=== PATIENT | male | born 1995 | race Caucasian/White ===

== ENCOUNTER 2017-11-01 17:36 | Emergency (ER) | payer BC ==
[2017-11-01] MEDS ORDERED: KETOROLAC 30 MG/ML VIAL IM ONE (17:48)
--- NOTE | 2017-11-01 17:53 | Emergency Department Record ---
History of Present Illness - General Chief Complaint: Back Pain/Injury Stated Complaint: BACK INJURY Time Seen by Provider: 11/01/17 17:44 Source: Patient Mode of Arrival: Ambulatory Limitations: No limitations - History of Present Illness Initial Comments: The patient is here due to upper back pain which occurred at work about 2 hours ago. 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 The pain is much worse with any movement and twisting. He denies any fall, direct trauma, arm or leg numbness, tingling or weakness. The patient states he has no hx of similar issues or problems. The patient walked in from the ambulance with no difficulty. MD Complaint: Back pain Onset/Timin -: Hour(s) Similar Symptoms Previously: No Place: Work Severity scale (1-10): 7 Quality: Burning, Other Consistency: Constant Improves With: None Worsens With: Movement, Sitting upright, Walking Context: Other Associated Symptoms: Denies other symptoms - Related Data Previous Rx's Medication Instructions Recorded Ibuprofen [Motrin] 800 mg PO TID PRN #20 tab 11/01/17 Allergies Allergy/AdvReac Type Severity Reaction Status Date / Time No Known Drug Allergies Allergy Verified 11/01/17 17:45 Travel Screening - Travel/Exposure Within Last 30 Days Have you traveled within the last 30 days?: No - Travel/Exposure Within Last Year Have you traveled outside the [place] in the last year?: No - Additonal Travel Details Have you been exposed to anyone with a communicable illness?: No - Travel Symptoms Symptom Screening: None Review of Systems Constitutional: Denies: Chills, Fever Past Medical History - SOCIAL HISTORY Smoking Status: Former smoker Alcohol Use: None Drug Use: None - RESPIRATORY Hx Respiratory Disorders: Yes Hx Asthma: Yes (when younger) - CARDIOVASCULAR Hx Cardio Disorders: No - NEURO Hx Neuro Disorders: No - GI Hx GI Disorders: No - Hx Genitourinary Disorders: No - ENDOCRINE Hx Endocrine Disorders: No - MUSCULOSKELETAL Hx Musculoskeletal Disorders: No - PSYCH Hx Psych Problems: No - HEMATOLOGY/ONCOLOGY Hx Hematology/Oncology Disorders: No Family Medical History Any Significant Family History?: No Physical Exam - General General Appearance: Alert, Oriented x3, Cooperative, No acute distress - Head Head exam: Atraumatic, Normocephalic, Normal inspection - Eye Eye exam: Normal appearance - Neck Neck exam: Normal inspection, Full ROM. negative: Lymphadenopathy, Meningismus , Tenderness - Respiratory Respiratory exam: Normal lung sounds bilaterally. negative: Respiratory distress - Cardiovascular Cardiovascular Exam: Regular rate, Normal rhythm, Normal heart sounds - GI/Abdominal GI/Abdominal exam: Soft, Normal bowel sounds. negative: Tenderness - Extremities Extremities exam: Normal inspection, Full ROM, Normal capillary refill. negative: Tenderness - Back Back exam: Reports: Normal inspection, Muscle spasm, Paraspinal tenderness (The pain is 100% reproducible with palpation of the R and L lateral T4-8 paraspinal muscle area. ). Denies: Vertebral tenderness - Neurological Neurological exam: Alert, Normal gait, Oriented X3, Reflexes normal. negative: Abnormal gait, Altered, Motor sensory deficit Course Vital Signs 11/01/17 17:37 Temperature 97.9 F Pulse Rate 77 Respiratory 16 Rate Blood Pressure 124/74 Pulse Ox 96 - Reevaluation(s) Reevaluation #1: The patient is doing a bit better and the pain is improved. There is still pain with ROM but no arm or leg numbess or tingling. He is to be off work today and be seen at the [facility] provider tomorrow. 11/01/17 18:41 Medical Decision Making - Data Complexity MDM Data: X-Ray Ordered and/or Reviewed - Radiology Data Radiology results: Report reviewed (Thoracic Spine: Neg.) Disposition Disposition: Discharge Clinical Impression: Strain of thoracic paraspinal muscles excluding T1 and T2 levels Qualifiers: Encounter type: initial encounter Qualified Code(s): S29.012A - Strain of muscle and tendon of back wall of thorax, initial encounter Disposition: Home, Self-Care Condition: (2) Stable Instructions: Muscle Strain (ED) Additional Instructions: Please take the Motrin for pain and take today off work. Please see your [facility] provider tomorrow for recheck and return to the ER for any increased pain, arm or leg numbness, weakness or any bowel or bladder issues. Prescriptions: Ibuprofen [Motrin] 800 mg PO TID PRN #20 tab PRN Reason: Pain Forms: Patient Portal Access Time of Disposition: 18:46 Quality - Quality Measures Quality Measures: N/A - Blood Pressure Screening View Details: Yes Does Patient Have Any of the Following: No Blood Pressure Classification: Pre-Hypertensive BP Reading Systolic Measurement: 132 Diastolic Measurement: 67 Screening for High Blood Pressure: < Pre-Hypertensive BP, F/U Documented > [ [id number]] Pre-Hypertensive Follow-up Interventions: Referral to alternative/primary care provider.
--- NOTE | 2017-11-02 13:29 | RADIOLOGY REPORT ---
EXAM: THORACIC SPINE HISTORY: BACK PAIN. TECHNIQUE: Four views of the thoracic spine were obtained. Comparison: None. FINDINGS: The vertebral body height and alignment is preserved. The disk spaces are maintained. IMPRESSION: NEGATIVE THORACIC SPINE EXAMINATION. JOB NUMBER: [id number] MTDD
== END 2017-11-01 18:56 | disposition home or self-care (01) ==
LOC: ER 17:36
DX: S29.012A Strain of muscle and tendon of back wall of thorax, initial encounter (principal); X50.0XXA Overexertion from strenuous movement or load, initial encounter; Y92.63 Factory as the place of occurrence of the external cause; Y99.0 Civilian activity done for income or pay
CPT/HCPCS: 99283; 96372; 99284; 72072; J1885